=== PATIENT | female | born 2000 | race Caucasian/White ===

== ENCOUNTER 2023-05-05 10:00 | Emergency (ER) | payer MEDICAID, SELFPAY ==
[2023-05-05 10:08] VITALS: BP 101/53; PULSE 84; RESP 18; TEMP 36.6; O2SAT 97
--- NOTE | 2023-05-05 10:15 | RT.EKG_ITS ---
APPROVED REPORT Exam: Resting ECG Reason for Exam: chest pressure Patient Location: E HR:73 bpm ECG Measurements Heart Rate 73 AXIS WY 153 P 38 QRSd 78 QRS 29 QT 373 T 9 QTc 413 Conclusion Sinus arrhythmia...V-rate 59- 86, variation>10%
--- NOTE | 2023-05-05 10:15 | DI.RAD_ITS ---
Exam(s) XR CHEST 2V PA LATERAL EXAM: XR CHEST 2V PA LATERAL CLINICAL HISTORY: cough TECHNIQUE: 2D digital imaging was performed of the chest. Two images were obtained. PA and lateral views were obtained. COMPARISON: No exams were available for comparison FINDINGS: MEDIASTINUM: Normal. HEART: Normal. PULMONARY VASCULATURE: Normal. LUNGS: Clear. PLEURAL SPACE: No pleural effusion or pneumothorax. BONE:Within normal limits for the patient's age. OTHER FINDINGS:Normal. IMPRESSION: No acute pulmonary findings. DATA REPOSITORY: RADIATION DOSE DELIVERED:
--- NOTE | 2023-05-05 10:29 | ED.GENADUL_ITS ---
Discharge Plan Disposition Patient Disposition: Home Condition: Good Discharge Details Clinical Impression: Cough, Bronchitis Primary Care Provider: Renaldo Boston ED Provider: Neeraj Wahl Home Meds and New Rx's Prescriptions: Continued Nexplanon 68 mg Implant 68 implant SUBDERMAL QMONTH azithromycin 250 mg tablet 250 mg PO USEASDIRECTD Patient Comments: TAKE 2 TABLETS BY MOUTH ON DAY 1, AND THEN TAKE 1 TABLET BY MOUTH ONCE A DAY ON DAY 2 THROUGH DAY 5 prednisone 20 mg tablet 20 mg PO TID Patient Comments: TAKE 2 TABLETS BY MOUTH ONCE DAILY FOR 3 DAYS THEN 1 ONCE DAILY FOR 3 DAYS THEN 1/2 (ONE-HALF) ONCE DAILY FOR 4 DAYS albuterol sulfate 90 mcg/actuation HFA aerosol inhaler 2 inh INHALATION PRN PRN Patient Comments: INHALE 2 PUFFS BY MOUTH EVERY 4 TO 6 HOURS NEEDED Discontinued amoxicillin 500 mg capsule 500 mg Patient Comments: TAKE 1 CAPSULE BY MOUTH EVERY 8 HOURS UNTIL GONE Discharge Instructions Instructions: Acute Bronchitis (ED) Additional Instructions: You were seen in the emergency department for cough and chest pressure. We performed a chest x-ray and EKG that were unremarkable. Your COVID and flu testing were pending and we will call you if these are positive. You must self isolate if either of these come back positive. You likely have a viral bronchitis. Continue with your azithromycin and prednisone as prescribed. You can take [id number] ibuprofen 600 mg every 6 hours for your symptoms. Return for any worsening shortness of breath or chest pressure. Follow-up with a primary care doctor in [place]. Stand Alone Forms: Work Release Referrals: Renaldo Boston [Primary Care Provider] - Discharge Data Discharge Physician: Neeraj Wahl Medical Decision Making 23-year-old female presents with cough, shortness of breath, and chest pressure. Vital signs unremarkable and well-appearing. Likely does represent a viral bronchitis. Was not tested for COVID or flu and we will repeat those test now. We will get a chest x-ray to evaluate for pneumonia. Will get EKG to look for arrhythmia. She is 23 years old with no risk factors or family history so not likely to represent ACS and will not pursue the diagnosis further. Patient meets pulmonary embolism rule out criteria will not pursue the diagnosis of PE further. We will give some ibuprofen to help with her symptoms while awaiting EKG, chest x-ray, and COVID/flu swab. We will continue to monitor. Imaging Data Radiologic Study: Attestation: I personally reviewed and interpreted this imaging study as follows: Imaging: X-Ray (chest) My impression: Chest x-ray unremarkable Lab Data Lab results reviewed: Yes I reviewed the patient's lab results. ECG Data Attestation: I personally reviewed and interpreted this ECG (s) as follows: Prior ECG tracings: available for review Interpretation: Normal sinus rhythm with normal rate. Normal axis. Normal VT intervals and no ST or T wave changes. Otherwise unremarkable EKG. No prior EKG for comparison. HPI General Mode of arrival: ambulatory . Date/Time Provider Initiated Documentation: 05/05/23 10:10 . Limitations to Documentation: no limitations . Information obtained by: patient . HPI Narrative: 23-year-old female presents with 4 days of cough. Nonproductive in nature. Associated with sore throat and general malaise. Occasionally short of breath but this goes away. She was seen Thursday and started on Z-Murali and some steroids at an urgent care in [place]. She returns now because she was at work and reported some chest pressure to them with the symptoms and her coworkers made her come in. She has no medical conditions does not take any medications and does not have any allergies. Does not smoke, drink, or do any drugs. No recent travel or surgeries. No leg pain, swelling, redness. No hemoptysis. She is not from the area and was just here for work and wanted to get checked out. Related Data Home Medications Medication Instructions Recorded Confirmed albuterol sulfate 90 mcg/actuation 2 inh inhalation PRN PRN 05/05/23 05/05/23 aerosol inhaler azithromycin 250 mg tablet 250 mg PO USEASDIRECTD 05/05/23 05/05/23 etonogestrel 68 mg subdermal 68 implant subdermal QMONTH 05/05/23 05/05/23 implant (Nexplanon) prednisone 20 mg tablet 20 mg PO TID 05/05/23 05/05/23 Allergies Allergy/AdvReac Type Severity Reaction Status Date / Time No Known Allergies Allergy Unverified 05/05/23 10:07 General Stated Complaint: RespSymp MADAI: 3 Review of Systems Constitutional Constitutional: Denies chills, Denies fever(s), Denies headache(s) and Reports malaise Eyes Eyes: Denies change in vision ENT Ears, Nose, Mouth, and Throat: Denies headache(s) and Denies odynophagia Cardiovascular Cardiovascular: Denies chest pain, Reports dyspnea and Reports other (chest pressure) Respiratory Respiratory: Reports cough and Reports dyspnea Gastrointestinal Gastrointestinal: Denies abdominal pain, Denies diarrhea, Denies nausea, Denies odynophagia and Denies vomiting Genitourinary Genitourinary: Denies dysuria Musculoskeletal Musculoskeletal: Denies myalgias Integumentary/Breasts Skin/Breast: Denies changing lesions Neurologic Neurologic: Denies behavioral changes and Denies headache(s) Psychiatric Psychiatric: Denies behavioral changes Endocrine Endocrine: Denies heat intolerance Hematologic/Lymphatic Hematologic/Lymphatic: Denies lymphadenopathy PFSH All Active Problems (Updated 05/05/23 @ 10:37 by Neeraj Wahl MD) Cough (Acute) Bronchitis (Acute) Social History Smoking/Tobacco Use Status: Never Smoking risk assessment performed?: Yes Alcohol Intake: never Substance use type: does not use Exam Const General: cooperative Nutritional Appearance: average body habitus Orientation: alert, awake and oriented x3 HENMT Head: normal to inspection Ears: external ears normal Mouth: moist mucous membranes Eyes Pupils: PERRL EOM: EOM intact bilaterally and No nystagmus Neck Neck: full ROM and no tracheal deviation Chest Chest: normal inspection of the chest Resp Auscultation: clear to auscultation bilaterally Cardio Rate: regular rate Rhythm: regular rhythm GI Inspection: normal to inspection Palpation: soft, no guarding, not rigid and nontender Back/Spine/Pelvis Back: No no CVA tenderness Thoracic/Lumbar Spine: thoracic and lumbar spine normal to inspection Skin General skin exam: no rashes or lesions noted Neuro General: patient alert, patient awake and patient oriented x3 Cranial Nerves: CN's II-XI intact bilaterally, PERRL and no nystagmus Cognition: normal cognition Motor: muscle tone normal throughout and strength 5/5 throughout Sensory Exam: no sensory deficits noted Extrem General: normal to inspection Course Vital Signs Vital signs: Vital Signs Temperature 36.6 C 05/05/23 10:08 Pulse 84 05/05/23 10:08 Respiratory Rate 18 05/05/23 10:08 Blood Pressure 101/53 L 05/05/23 10:08 Pulse Oximetry 97 05/05/23 10:08 Temperature 36.6 C 05/05/23 10:08 Temperature Source Temporal Artery Scan 05/05/23 10:08 Pulse 84 05/05/23 10:08 Respiratory Rate 18 05/05/23 10:08 Respiratory Effort Short of Breath, Labored 05/05/23 10:14 Respiratory Depth Shallow 05/05/23 10:14 Blood Pressure 101/53 L 05/05/23 10:08 Pulse Oximetry 97 05/05/23 10:08 Oxygen Delivery Method Room Air 05/05/23 10:08 Oxygen Flow Rate 0 05/05/23 10:08
[2023-05-05] MEDS: Ibuprofen 600 MG TAB PO (10:33)
[2023-05-05 11:10] VITALS: BP 133/76; PULSE 81; RESP 16; O2SAT 97
[2023-05-05 11:29] LABS: COVID-19 PCR Negative (Negative); Influenza A PCR Negative (Negative); Influenza B PCR Negative (Negative); RSV PCR Negative (Negative)
[2023-05-05 13:55] LABS: Source Nasopharynx
== END 2023-05-05 11:12 | disposition home or self-care (01) ==
PROVIDERS: Emergency Provider Student in an Organized Health Care Education/Training Program
DX: J40 Bronchitis, not specified as acute or chronic (principal); R05.9 Cough, unspecified; R06.02 Shortness of breath
CPT/HCPCS: 87637; 93005; 99284; 71046; 93010; 99283

== ENCOUNTER 2023-05-18 14:11 | Emergency (ER) | payer MEDICAID, SELFPAY ==
--- NOTE | 2023-05-18 14:00 | RT.EKG_ITS ---
APPROVED REPORT Exam: Resting ECG Reason for Exam: CP/SOB Patient Location: E HR:90 bpm ECG Measurements Heart Rate 90 AXIS AL 152 P 43 QRSd 72 QRS 41 QT 354 T 12 QTc 434 Conclusion Sinus rhythm...normal P axis, V-rate 60- 99
[2023-05-18 14:14] VITALS: BP 132/90; PULSE 95; RESP 20; TEMP 36.2; O2SAT 97
--- NOTE | 2023-05-18 14:28 | ED.GENADUL_ITS ---
Discharge Plan Disposition Patient Disposition: Home Condition: Stable Discharge Details Clinical Impression: Chest pain Primary Care Provider: Unknown,Unknown ED Provider: Panda Wahl Home Meds and New Rx's Prescriptions: New ondansetron 4 mg tablet,disintegrating 4 mg PO Q8H PRN (Reason: nausea and vomiting) Qty: 30 0RF Continued Nexplanon 68 mg Implant 68 implant SUBDERMAL QMONTH albuterol sulfate 90 mcg/actuation HFA aerosol inhaler 2 inh INHALATION PRN PRN Patient Comments: INHALE 2 PUFFS BY MOUTH EVERY 4 TO 6 HOURS NEEDED Discontinued azithromycin 250 mg tablet 250 mg PO USEASDIRECTD Patient Comments: RX complete 05/18/23 CT prednisone 20 mg tablet 20 mg PO TID Patient Comments: RX complete 05/18/23 CT Discharge Instructions Instructions: Chest Pain (ED) Additional Instructions: follow up with your primary care provider within 1 week if you feel more ill, have severe worsening pain or difficulty breathing return to the emergency department Medical Decision Making 23 yo female with no significant pmhx comes in with chief complaint of chest pain. She states it started last night but then was in class at the [employer] training facility when she said it worsened and she felt lightheaded. No loc, no fevers, no chills, no abdominal pain, no diaphoresis. She arrives stable, does appear anxious but otherwise appears well. No jvd, clear lungs, no murmurs, soft nontender abdomen, no leg swelling or calf tenderness, no hypoxia. Pocus with normal appearing EF and no apparent abnormalities. Suspect chest wall pain as doing the ultrasound caused an increase in her pain. No trauma or falls and had an xray earlier this month so do not feel repeat imaging indicated, no symptoms to suggest pneumonia and mercedes lung sliding on u/s. Will send troponin. She has no evidence of dvt, no pleuritic chest pain and no hypoxia or tachycardia with no dilation of RV so doubt PE and do not feel workup indicated at this time. No tearing back pain and normal equal pulses bilaterally so doubt dissection troponin negative, pt feels better, given over 3 hours of symptoms do not feel delta troponin indicated, she is requesting zofran prescription since it helped her a lot here. Advised to f/u with pcp and return precautions given Differential Diagnosis Differential Diagnosis: anxiety, chest wall pain, nstemi Lab Data Lab results reviewed: Yes I reviewed the patient's lab results. ECG Data Attestation: I personally reviewed and interpreted this ECG (s) as follows: Prior ECG tracings: available for review Interpretation: sinus rate of 90 pr 152, no acute ischemic findings HPI General Mode of arrival: ambulatory . Date/Time Provider Initiated Documentation: 05/18/23 14:12 . Limitations to Documentation: no limitations . Information obtained by: patient . History of Present Illness 23 year old F presents to the emergency department with the chief complaint of chest pain, described as moderate, Patient started experiencing this day(s) (1) and it has been constant. No relieving factors improve symptom(s), No exacerbating factors reported . Patient notes shortness of breath. Patient did receive the following treatments prior to arrival, none Related Data Home Medications Medication Instructions Recorded Confirmed albuterol sulfate 90 mcg/actuation 2 inh inhalation PRN PRN 05/05/23 05/18/23 aerosol inhaler etonogestrel 68 mg subdermal 68 implant subdermal QMONTH 05/05/23 05/18/23 implant (Nexplanon) ondansetron 4 mg disintegrating 4 mg PO Q8H PRN nausea and 05/18/23 tablet vomiting #30 tabs Previous Rx's Medication Instructions Recorded ondansetron 4 mg disintegrating 4 mg PO Q8H PRN nausea and 05/18/23 tablet vomiting #30 tabs Allergies Allergy/AdvReac Type Severity Reaction Status Date / Time No Known Allergies Allergy Unverified 05/18/23 14:17 General Stated Complaint: Chest Pain MADAI: 2 Review of Systems All systems reviewed & are unremarkable except as noted in HPI and below Constitutional Constitutional: Denies chills, Denies fever(s) and Denies weakness Cardiovascular Cardiovascular: Reports chest pain and Reports dyspnea Respiratory Respiratory: Denies cough and Reports dyspnea Gastrointestinal Gastrointestinal: Denies abdominal pain and Denies nausea Genitourinary Genitourinary: Denies dysuria Musculoskeletal Musculoskeletal: Denies joint swelling Integumentary/Breasts Skin/Breast: Denies rash Neurologic Neurologic: Denies weakness Psychiatric Psychiatric: Denies depression Endocrine Endocrine: Denies cold intolerance and Denies heat intolerance Allergic/Immunologic Allergic/Immunologic: Denies urticaria PFSH All Active Problems (Updated 05/18/23 @ 15:08 by Panda Wahl MD) Cough (Acute) Bronchitis (Acute) Chest pain (Acute) Social History Smoking/Tobacco Use Status: Never Smoking risk assessment performed?: Yes Alcohol Intake: never Substance use type: does not use Do you feel safe at home: Yes Exam Const General: no acute distress Orientation: alert HENMT Head: normal to inspection Ears: external ears normal General nose exam: external nose normal Mouth: moist mucous membranes Eyes General: appearance normal, both eyes and all related structures Neck Neck: normal visual inspection Resp Effort & Inspection: normal respiratory effort and able to speak in complete sentences Auscultation: clear to auscultation bilaterally Cardio Jugular venous pressure: no JVD Rate: regular rate Heart Sounds: no murmurs Skin General skin exam: no rashes or lesions noted Neuro General: patient alert and patient oriented x3 Extrem General: normal to inspection Psych Mental Status: mental status grossly normal Course Vital Signs Vital signs: Vital Signs Temperature 36.2 C L 05/18/23 14:14 Pulse 95 H 05/18/23 14:14 Respiratory Rate 20 05/18/23 14:14 Blood Pressure 132/90 05/18/23 14:14 Pulse Oximetry 97 05/18/23 14:14 Temperature 36.2 C L 05/18/23 14:14 Temperature Source Tympanic 05/18/23 14:14 Pulse 95 H 05/18/23 14:14 Respiratory Rate 20 05/18/23 14:14 Respiratory Effort Short of Breath 05/18/23 14:17 Blood Pressure 132/90 05/18/23 14:14 Blood Pressure Position Sitting 05/18/23 14:14 Pulse Oximetry 97 05/18/23 14:14 Oxygen Delivery Method Room Air 05/18/23 14:14 Oxygen Flow Rate 0 05/18/23 14:14 Pain Level 9 05/18/23 14:14 POCUS Exam (ED) Limited Cardiac Exam DATE OF EXAM: 05/18/23 TIME OF EXAM: 14:38 PROVIDER THAT PERFORMED THE STUDY: Panda Wahl REASON FOR EXAM: Cardiac arrest VISUALIZED STRUCTURES: Left ventricle and Right ventricle VIEW OBTAINED: Parasternal long-axis PERTINENT FINDINGS/IMPRESSION: No apparent abnormalities; No LV dysfunction, No pericardial effusion and No RV dilation Exam complete Limited Thoracic Lung Exam DATE OF EXAM: 05/18/23 TIME OF EXAM: 14:39 PROVIDER THAT PERFORMED THE STUDY: Panda Wahl REASON FOR EXAM: Chest pain VISUALIZED STRUCTURES: right anterior and left anterior PERTINENT FINDINGS/IMPRESSION: No apparent abnormalities (normal lung sliding, no evidence of pneumothorax) Exam complete
[2023-05-18 14:50] LABS: Abs Immature Grans 0.03 10^3/uL (0.0-0.06); Absolute Basophil Count 0.08 10^3/uL (0.0-0.2); Absolute Lymphocyte Count 3.27 10^3/uL (1.2-3.4); Absolute Neutrophil Count 7.12 10^3/uL (1.2-6.7); Basophils % 0.7; HCT 38.5 % (36.0-46.0); Immature Grans % 0.3; Lymphocytes % 29.5; MCH 30.2 pg (27.0-33.0); MCHC 33.8 % (32.0-36.0); MCV 89 fL (80-95); MPV 11.2 fL (8.0-11.0); Monocytes % 5.4; Neutrophils % 64.1; Platelet Count 272 10^3/uL (130-400); RBC 4.31 10^6/uL (3.93-5.22); RDW 12.7 % (11.7-14.6); RDW-SD 41.6 fL
[2023-05-18] MEDS: Ondansetron 4 MG/2 ML VIAL IVP (15:02)
[2023-05-18 15:41] LABS: ALT 87 U/L (14-59); AST 36 U/L (15-37); Albumin 3.5 g/dL (3.4-5.0); Alkaline Phosphatase 77 U/L (46-116); Anion Gap 11.6 mmol/L (3-11); BUN 10 mg/dL (7-18); Bilirubin, Total 0.3 mg/dL (0.2-1.0); CO2 24.4 mmol/L (21.0-32.0); Calcium 8.5 mg/dL (8.5-10.1); Chloride 105 mmol/L (98-107); Estimated GFR 80.68 (mL/min/1.73m2); Glucose 135 mg/dL (74-106); Lipase 44 U/L (16-77); Magnesium 1.7 mg/dL (1.8-2.4); Potassium 3.7 mmol/L (3.5-5.1); Sodium 141 mmol/L (136-145); Total Protein 7.4 g/dL (6.4-8.2); Troponin I < 50 ng/L (<or=60)
[2023-05-18 15:48] VITALS: BP 93/52; PULSE 88; RESP 18
== END 2023-05-18 15:53 | disposition home or self-care (01) ==
PROVIDERS: Emergency Provider Emergency Medicine
DX: R07.9 Chest pain, unspecified (principal); R06.02 Shortness of breath
CPT/HCPCS: 80053; 83690; 93005; 93308; 96374; 99284; 83735; 84484; 85025; 93010; J2405